=== PATIENT | male | born 1980 | race Caucasian/White ===

== ENCOUNTER 2025-02-09 12:02 | Emergency (ER) | payer SELFPAY ==
[2025-02-09] MEDS: Diphtheria,Pertussis(Acell),Tetanus Vaccine 0.5 ML Syringe IM ONE (14:15)
== END 2025-02-09 14:51 | disposition home or self-care (01) ==
LOC: EDBD → EDUNIT# → JD.ED 12:02
DX: Z02.89 Encounter for other administrative examinations (principal); S51.811A Laceration without foreign body of right forearm, initial encounter; T33.532A Superficial frostbite of left finger(s), initial encounter; T33.531A Superficial frostbite of right finger(s), initial encounter; Z88.0 Allergy status to penicillin; Z79.01 Long term (current) use of anticoagulants; Z79.899 Other long term (current) drug therapy; X31.XXXA Exposure to excessive natural cold, initial encounter
CPT/HCPCS: 12002; 99283; A9270; J2003